=== PATIENT | female | born 1945 | race African-American/Black ===

== ENCOUNTER 2024-07-11 15:15 | Emergency (ER) | payer OTHER, SELFPAY ==
[~2024-07-11 15:15] MED LIST: Iopamidol 370 76% 100 ML VIAL ONE
[2024-07-11 16:47] LABS: Anion Gap 14 mmol/L (10-20); BUN (Urea Nitrogen) 17 mg/dL (9.8-20.1); Calc. Creatinine Clearance 0 mL/min (70-130); Carbon Dioxide 24 mmol/L (23-31); Chloride 106 mmol/L (98-107); Estimated GFR 37; Glucose 93 mg/dL (83-110); Potassium 4.2 mmol/L (3.5-5.1); Sodium 140 mmol/L (136-145)
[2024-07-11 17:45] LABS: Hematocrit 39.2 % (36.0-47.0); Hemoglobin 12.2 g/dL (12.0-16.0); Mean Corpuscular HGB CONC 31.1 g/dL (32.0-36.0); Mean Corpuscular Hemoglobin 26.1 pg (27.0-31.0); Mean Corpuscular Volume 83.8 fl (78.0-98.0); Mean Platelet Volume 7.1 fL (7.4-10.4); Platelet Count 291 10x3/uL (130-400); RBC Distribution Width 13.6 % (11.5-14.5); Red Blood Cell (RBC) Count 4.68 mill/uL (4.20-5.40); White Blood Cell (WBC) Count 6.3 10x3/uL (4.8-10.8)
[2024-07-11 18:14] LABS: MDiff Complete? YES
[2024-07-11] MEDS ORDERED: hydrALAZINE 20 MG/ML VIAL ONE (18:51)
[2024-07-11] MEDS ORDERED: niCARdipine 20MG In NaCl 20 MG/200 ML BAG ONE (19:01)
[2024-07-11 19:34] LABS: Eosinophils 3 % (0-10); Lymphocytes 42 % (21-51); Monocytes 13 % (0-10); Neutrophil 41 % (42-75)
[2024-07-11 19:35] LABS: RBC Morph Comment Within Normal Limits
[2024-07-11 19:36] LABS: Platelet Adequacy Comment Appears Adequate; Smudge Cells SLIGHT; Toxic Granulation SLIGHT
[2024-07-11 21:09] LABS: ALT (SGPT) 16 U/L (8-55); AST (SGOT) 18 U/L (5-34); Albumin 4.1 g/dL (3.4-4.8); Alkaline Phosphatase 69 U/L (40-110); Anion Gap 17 mmol/L (10-20); BUN (Urea Nitrogen) 16 mg/dL (9.8-20.1); Bilirubin, Total 0.4 mg/dL (0.2-1.2); Calc. Creatinine Clearance 0 mL/min (70-130); Carbon Dioxide 22 mmol/L (23-31); Chloride 105 mmol/L (98-107); Estimated GFR 48; Globulin 2.9 g/dL (2.4-3.5); Glucose 85 mg/dL (83-110); Potassium 4.1 mmol/L (3.5-5.1); Sodium 140 mmol/L (136-145)
[2024-07-11 21:16] LABS: Troponin I 0.015 ng/mL (< 0.028)
== END 2024-07-11 21:39 | disposition short-term general hospital (02) ==
LOC: NAV ERS 15:15
DX: I10 Essential (primary) hypertension (principal); N28.9 Disorder of kidney and ureter, unspecified; E78.00 Pure hypercholesterolemia, unspecified; I25.10 Atherosclerotic heart disease of native coronary artery without angina pectoris; I25.2 Old myocardial infarction; Z79.82 Long term (current) use of aspirin; Z79.899 Other long term (current) drug therapy
CPT/HCPCS: 70450; 70496; 70498; 80048; 83880; 84484; 85025; 93005; 96365; 96366; 96375; J0360; Q9967